=== PATIENT | female | born 2000 | race Caucasian/White ===

== ENCOUNTER 2022-11-06 09:20 | Inpatient (IN) | payer OTHER ==
[2022-11-06] MEDS ORDERED: LABETALOL HCL 5 MG/1 ML (100MG/20 ML VIAL) IVPUSH PRN ×2 (10:27)
[2022-11-06] MEDS ORDERED: LABETALOL HCL 5 MG/1 ML (100MG/20 ML VIAL) IVPUSH ONE ×2 (10:27→23:42)
[2022-11-06] MEDS ORDERED: hydrALAZINE HCL 20 MG/ML VIAL IVPUSH PRN (10:27)
[2022-11-06] MEDS ORDERED: LABETALOL HCL 20 MG/4 ML VIAL ONE ×2 (10:43→19:07)
[2022-11-06] MEDS: ELECTROLYTE-148 SOLN 1,000 ML IV SCH (10:45)
[2022-11-06 11:20] LABS: BASO % 0.6 % (0-2.0); EOS % 0.4 % (0-4.5); HEMATOCRIT 32.5 % (32.4-45.2); HEMOGLOBIN 10.5 GM/dL (10.7-15.3); LYMPH % 18.6 % (8-40); MCH 22.9 pg (25.7-33.7); MCHC 32.4 g/dl (32.0-36.0); MEAN CELL VOLUME 70.6 fl (80-96); MONO % 7.7 % (3.8-10.2); NEUT % 72.7 % (42.8-82.8); PLATELET COUNT 243 10^3/uL (134-434); RBC 4.61 M/mm3 (3.60-5.2); RDW 17.3 % (11.6-15.6); WHITE BLOOD COUNT 9.4 K/mm3 (4.0-10.0)
[2022-11-06 11:26] LABS: INR 0.85 (0.83-1.09); PROTHROMBIN TIME (PATIENT) 9.9 SEC (9.7-13.0)
[2022-11-06] MEDS ORDERED: FENTANYL/BUPIVACAINE/NS/PF - PCEA - 50 ML DISP.SYRIN EP ONE ×2 (11:27→16:24)
[2022-11-06 11:28] LABS: POTASSIUM 3.8 mmol/L (3.5-5.1)
[2022-11-06 11:29] LABS: ACTIVATED PTT 27.4 SECONDS (25.2-36.5)
[2022-11-06 11:30] LABS: CALCIUM 8.3 mg/dL (8.5-10.1)
[2022-11-06 11:31] LABS: BLOOD UREA NITROGEN 9.1 mg/dL (7-18)
[2022-11-06 11:34] LABS: CREATININE 0.5 mg/dL (0.55-1.3); URIC ACID 5.2 mg/dL (2.6-7.2)
[2022-11-06] MEDS ORDERED: ACETAMINOPHEN 325 MG TABLET (FP) PO STA (11:41)
[2022-11-06 11:55] LABS: SYPHILIS W/ RPR CONF NON-REACTIVE (NONREACTIVE)
[2022-11-06] MEDS ORDERED: MAGNESIUM SULFATE 20GM/500ML - 20 GM/500 ML INFUS.BAG ONE ×2 (11:55→21:47)
[2022-11-06] MEDS ORDERED: MAGNESIUM 4GM/H20 - 4 GM/100 ML IVPB IVPB ONE (11:55)
[2022-11-06] MEDS ORDERED: OXYTOCIN 30 UNITS in 0.9% NS 30 UNIT/500 ML INFUS.BAG IVPB ONE (11:55)
[2022-11-06] MEDS: MAGNESIUM 4GM/H20 - 4 GM/100 ML IVPB IVPB SCH ×2 (12:03→22:00)
[2022-11-06] MEDS ORDERED: NALOXONE HCL 0.4 MG/ML VIAL IVPUSH PRN (12:07)
[2022-11-06] MEDS ORDERED: BUPIVACAINE HCL/PF 0.25% (2.5MG/ML) 10 ML VIAL ONE (12:09)
[2022-11-06] MEDS ORDERED: LIDO 2%/EPI 1:200000 PRESRVFRE (20 ML SDVIAL) ONE (12:10)
[2022-11-06] MEDS ORDERED: FENTANYL/BUPIVACAINE/NS/PF - PCEA - 50 ML DISP.SYRIN EP SCH (12:15)
[2022-11-06 12:20] LABS: HEPATITIS B SURFACE AG MATERN NON-REACTIVE (NONREACTIVE)
[2022-11-06 12:31] LABS: HIV INTERPRETATION NEGATIVE (NEGATIVE)
[2022-11-06] MEDS: MAGNESIUM SULFATE 20GM/500ML - 20 GM/500 ML INFUS.BAG IVPB SCH ×2 (12:31→22:00)
[2022-11-06 14:32] LABS: EPI CELLS 33 /uL (0-25.1); HYALINE CASTS 2 /uL (0-3.1); PH,URINE 6.5 (5.0-8.0); URINE APPEARANCE CLEAR; URINE BACTERIA 101 /uL (0-1359); URINE BILIRUBIN NEGATIVE (NEGATIVE); URINE COLOR YELLOW; URINE GLUCOSE (UA) NEGATIVE (NEGATIVE); URINE KETONE NEGATIVE (NEGATIVE); URINE LEUK ESTERASE NEGATIVE (NEGATIVE); URINE NITRITE NEGATIVE (NEGATIVE); URINE PROTEIN 4+ (NEGATIVE); URINE RBC 10 /uL (0-23.9); URINE WBC 8 /uL (0-25.8)
[2022-11-06 14:40] LABS: URINE AMPHETAMINES NEGATIVE (NEGATIVE)
[2022-11-06 14:41] LABS: OPIATES, URI NEGATIVE (NEGATIVE); PHENCYCLIDINE,URINE NEGATIVE (NEGATIVE); URINE BARBITURATES NEGATIVE (NEGATIVE); URINE BENZODIAZEPINES NEGATIVE (NEGATIVE)
[2022-11-06 14:59] LABS: COCAINE, UR NEGATIVE (NEGATIVE); METHADONE, UR NEGATIVE (NEGATIVE)
[2022-11-06] MEDS: OXYTOCIN 30 UNITS in 0.9% NS 30 UNIT/500 ML INFUS.BAG IVPB SCH (15:00)
[2022-11-06] MEDS ORDERED: AMPICILLIN - 2 GM in SODIUM CHLORIDE 100 ML IVPB ONE (16:56)
[2022-11-06] MEDS ORDERED: AMPICILLIN SODIUM 2 GM VIAL ONE ×2 (17:18→19:41)
[2022-11-06] MEDS ORDERED: OXYTOCIN 20 UNITS in 0.9% NS 20 UNIT/1,000 ML INFUS.BAG IV ONE ×2 (17:50→23:51)
[2022-11-06] MEDS ORDERED: WITCH HAZEL 50% (TUCKS) 40 PAD/JAR PAD TP PRN (18:15)
[2022-11-06] MEDS ORDERED: BISACODYL 10 MG SUPP.RECT RC PRN (18:15)
[2022-11-06] MEDS ORDERED: OXYTOCIN 20 UNITS in 0.9% NS 20 UNIT/1,000 ML INFUS.BAG IV SCH (18:15)
[2022-11-06] MEDS ORDERED: IBUPROFEN 600 MG TABLET (FP) PO PRN (18:15)
[2022-11-06] MEDS ORDERED: BENZOCAINE 28 GM HEMORRHOIDAL OINTMENT TP PRN (18:15)
[2022-11-06] MEDS ORDERED: METHYLERGONOVINE MALEATE 0.2 MG/1 ML AMP IM PRN (18:15)
[2022-11-06] MEDS ORDERED: BENZOCAINE 20% 57 GM BOTTLE TP PRN (18:15)
[2022-11-06] MEDS ORDERED: MISOPROSTOL 200 MCG TABLET PR ONE (18:16)
[2022-11-06] MEDS ORDERED: OXYTOCIN 10 UNITS/ML VIAL ONE (18:51)
[2022-11-06] MEDS ORDERED: MEPERIDINE HCL 25 MG/ML VIAL ONE (19:08)
[2022-11-06] MEDS ORDERED: ONDANSETRON 4 MG/2 ML VIAL ONE (19:09)
[2022-11-06] MEDS ORDERED: hydrALAZINE HCL 20 MG/ML VIAL IVPUSH ONE ×2 (19:18→19:19)
[2022-11-06] MEDS ORDERED: MEPERIDINE HCL 25 MG/ML VIAL IVPUSH ONE (19:19)
[2022-11-06] MEDS ORDERED: METOCLOPRAMIDE HCL INJECTION 10 MG/2 ML VIAL ONE (19:33)
[2022-11-06] MEDS ORDERED: METOCLOPRAMIDE HCL INJECTION 10 MG/2 ML VIAL IVPUSH PRN (19:36)
[2022-11-06] MEDS ORDERED: OXYTOCIN 10 UNITS/ML VIAL IM ONE (19:36)
[2022-11-06] MEDS ORDERED: TRANEXAMIC ACID 1000 MG/10 ML VIAL IVPB ONE (19:37)
[2022-11-06] MEDS ORDERED: ceFAZolin SODIUM 1 GM VIAL ONE (19:46)
[2022-11-06] MEDS: CEFAZOLIN SODIUM 2 GM in DEXTROSE 5%-WATER 100 ML IVPB SCH (20:15)
[2022-11-06] MEDS ORDERED: AMPICILLIN - 1 GM in SODIUM CHLORIDE 100 ML IVPB SCH (21:00)
[2022-11-06 21:34] LABS: BASO % 0.3 % (0-2.0); EOS % 0.1 % (0-4.5); HEMATOCRIT 33.6 % (32.4-45.2); HEMOGLOBIN 10.4 GM/dL (10.7-15.3); LYMPH % 6.2 % (8-40); MCH 22.6 pg (25.7-33.7); MCHC 31.1 g/dl (32.0-36.0); MEAN CELL VOLUME 72.7 fl (80-96); MEAN PLT VOLUME 8.7 fl (7.5-11.1); MONO % 7.3 % (3.8-10.2); NEUT % 86.1 % (42.8-82.8); PLATELET COUNT 261 10^3/uL (134-434); RBC 4.62 M/mm3 (3.60-5.2); WHITE BLOOD COUNT 17.6 K/mm3 (4.0-10.0)
[2022-11-06 21:49] LABS: MAGNESIUM 6.1 mg/dL (1.8-2.4)
[2022-11-07] MEDS ORDERED: LABETALOL HCL 100 MG TABLET (FP) ONE ×2 (00:58→10:29)
[2022-11-07] MEDS: LABETALOL HCL 100 MG TABLET (FP) PO SCH ×3 (01:05→21:42)
[2022-11-07] MEDS: ACETAMINOPHEN 325 MG TABLET (FP) PO PRN (01:30)
[2022-11-07] MEDS ORDERED: ACETAMINOPHEN 325 MG TABLET (FP) ONE (01:34)
[2022-11-07 03:20] LABS: MAGNESIUM 6.2 mg/dL (1.8-2.4)
[2022-11-07] MEDS ORDERED: CEFAZOLIN SODIUM 2 GM VIAL ONE (03:36)
[2022-11-07] MEDS: CEFAZOLIN SODIUM 2 GM in DEXTROSE 5%-WATER 100 ML IVPB SCH ×2 (04:00→12:00)
[2022-11-07 07:59] LABS: BASO % 0.2 % (0-2.0); EOS % 0.1 % (0-4.5); HEMATOCRIT 28.7 % (32.4-45.2); HEMOGLOBIN 9.1 GM/dL (10.7-15.3); LYMPH % 14.5 % (8-40); MCH 22.9 pg (25.7-33.7); MCHC 31.6 g/dl (32.0-36.0); MEAN CELL VOLUME 72.4 fl (80-96); MEAN PLT VOLUME 8.6 fl (7.5-11.1); MONO % 7.7 % (3.8-10.2); NEUT % 77.5 % (42.8-82.8); PLATELET COUNT 215 10^3/uL (134-434); RBC 3.97 M/mm3 (3.60-5.2); RDW 17.4 % (11.6-15.6); WHITE BLOOD COUNT 12.1 K/mm3 (4.0-10.0)
[2022-11-07] MEDS ORDERED: MAGNESIUM SULFATE 20GM/500ML - 20 GM/500 ML INFUS.BAG ONE (08:05)
[2022-11-07] MEDS: MAGNESIUM SULFATE 20GM/500ML - 20 GM/500 ML INFUS.BAG IVPB SCH ×2 (08:07→11:45)
[2022-11-07] MEDS ORDERED: PRENATAL VITAMINS W/ FOLIC ACID TABLET (FP) PO ONE (10:29)
[2022-11-07] MEDS: ELECTROLYTE-148 SOLN 1,000 ML IV SCH (10:30)
[2022-11-07] MEDS: PRENATAL VITAMINS W/ FOLIC ACID TABLET (FP) PO SCH (10:30)
[2022-11-07] MEDS: OXYTOCIN 30 UNITS in 0.9% NS 30 UNIT/500 ML INFUS.BAG IVPB SCH (10:30)
[2022-11-07] MEDS ORDERED: ceFAZolin SODIUM 1 GM VIAL ONE (11:23)
[2022-11-07 11:29] LABS: MAGNESIUM 6.7 mg/dL (1.8-2.4)
[2022-11-07] MEDS: MAGNESIUM 4GM/H20 - 4 GM/100 ML IVPB IVPB SCH (12:03)
[2022-11-07 15:25] LABS: MAGNESIUM 6.5 mg/dL (1.8-2.4)
[2022-11-07] MEDS ORDERED: MAGNESIUM SULFATE 20GM/500ML - 20 GM/500 ML INFUS.BAG IVPB SCH (16:30)
[2022-11-07 20:03] VITALS: RESP 18
[2022-11-07] MEDS ORDERED: SENNOSIDES/DOCUSATE COMBO (SENNA PLUS) TABLET (UD) PO PRN (22:00)
[2022-11-08] MEDS: LABETALOL HCL 100 MG TABLET (FP) PO SCH ×2 (09:32→21:58)
[2022-11-08] MEDS: PRENATAL VITAMINS W/ FOLIC ACID TABLET (FP) PO SCH (09:32)
[2022-11-09] MEDS: ACETAMINOPHEN 325 MG TABLET (FP) PO PRN (06:34)
[2022-11-09 07:58] VITALS: BP 146/100; PULSE 60; TEMP 98
[2022-11-09] MEDS: PRENATAL VITAMINS W/ FOLIC ACID TABLET (FP) PO SCH (09:03)
[2022-11-09] MEDS: LABETALOL HCL 100 MG TABLET (FP) PO SCH (09:03)
== END 2022-11-09 11:42 | disposition home or self-care (01) | DRG 560 ==
LOC: JDEL 09:20 → JLDR 10:17 → J3W 11-07 19:50
PROVIDERS: ADMIT Obstetrics & Gynecology; ATTEND Obstetrics & Gynecology
PROC: 10E0XZZ Delivery of Products of Conception, External Approach (ICD-10-PCS; principal; 2022-11-06)
PROC: 0W8NXZZ Division of Female Perineum, External Approach (ICD-10-PCS; 2022-11-06)
PROC: 0HQ9XZZ Repair Perineum Skin, External Approach (ICD-10-PCS; 2022-11-06)
PROC: 3E033VJ Introduction of Other Hormone into Peripheral Vein, Percutaneous Approach (ICD-10-PCS; 2022-11-06)
DX: O14.14 Severe pre-eclampsia complicating childbirth (principal); O72.1 Other immediate postpartum hemorrhage; O70.0 First degree perineal laceration during delivery; Z3A.38 38 weeks gestation of pregnancy; Z37.0 Single live birth
CPT/HCPCS: 36415; 80048; 80307; 81003; 82977; 83010; 83735; 84550; 85025; 85045; 85610; 85730; 86762; 86780; 86850; 86900; 86901; 87340; 87389; 88307-TC